=== PATIENT | male | born 1940 | race Caucasian/White ===

== ENCOUNTER 2023-05-19 05:27 | Inpatient (IN) | payer OTHER, SELFPAY ==
[2023-05-19] VITALS (12 sets, daily range): BP systolic 94–161; BP diastolic 54–118; BMI 20.4; BMI 19.9
--- NOTE | 2023-05-19 01:14 | ED.GENMED ---
History of Present Illness
<SAWYER Elizabeth - Last Filed: 05/19/23 18:01>
General
Chief Complaint: Abdominal Pain
Source: patient
Exam Limitations: none
Time Seen by Provider: 05/19/23 01:02
Travel History
Have you had any contact with someone who has COVID-19?: Unable to Answer
Do you have any symptoms of coronavirus? Fever > 100 degrees, chills, cough, shortness of breath, sore throat, loss of taste or smell, muscle aches, or headache?: No
History of Present Illness
History of Present Illness:
This is a 83 year old male that is brought in by ambulance with c/o abd pain. Patient states that he started with abd pain at 9pm tonight. States that he was nauseated and vomited. States that he has a headache with some dizziness. Denies any fever,
chills, chest pain, diarrhea, urinary burning.
Past History
<SAWYER Elizabeth - Last Filed: 05/19/23 18:01>
Past History
ED Past Medical History: HTN, Hypercholesterolemia and Other (Thalassemia, history of alcohol abuse, B12 deficiency, degenerative joint disease, colon polyps, Rectal bleeding, back and neck pain, Cystitis, )
ED Past Surgical History: Orthopedic (Right wrist surgery, Right rotator cuff, Back surgery) and Urological
Social History
Tobacco: Former smoker
Alcohol: Former
Drug: None
Personal:
Living: care home ([facility])
Employment: Retired
Family History
Family History: Other (Noncontributory)
Review of Systems
<SAWYER Elizabeth - Last Filed: 05/19/23 18:01>
Review of Systems
All Other Systems: ROS reviewed and negative except as documented in HPI and ROS
Constitutional: Reports no symptoms; Denies fever or chills
EENT: Reports no symptoms
Respiratory: Reports trouble breathing; Denies cough
Cardiac: Reports no symptoms; Denies chest pain
ABD/GI: Reports abdominal pain, nausea and vomiting; Denies diarrhea
: Reports no symptoms; Denies dysuria, frequency or urgency
Musculoskeletal: Reports no symptoms
Skin: Reports no symptoms
Neurological: Reports dizzy and headache
Psychiatric: Reports no symptoms
Phy Exam
<SAWYER Elizabeth - Last Filed: 05/19/23 18:01>
General Physical Exam
General Presentation: no apparent distress
General age: appears stated age
General Skin: warm and dry
General Habitus: debilitated and elderly
General Mental: alert
General Hydration: dry mucous membranes
ENT Exam
ENT Exam: TM's normal, pharynx normal and neck supple
Eye Exam
Eye Exam: EOMI
Cardiovascular Exam
Cardiovascular Exam: regular rate/rhythm, no edema and normal peripheral pulses
Pulmonary Exam
Pulmonary Exam: lungs clear, no respiratory distress, no rales, chest non tender, no crackles, no rhonchi, no wheezing and no cough
Gastrointestinal Exam
Gastrointestinal Exam: soft, no organomegaly, no pulsatile mass, non distended, tender (Slight tenderness with palpation upper abd) and other (Hypoactive bowel sounds)
Musculoskeletal Exam
Musculoskeletal Exam: full ROM and no edema
Skin Exam
Skin Exam: normal color, warm/dry, no rash and no petechia
Psychiatric Exam
Psychiatric Exam: normal mood/affect
Course
<SAWYER Elizabeth - Last Filed: 05/19/23 18:01>
Orders/Labs/Results
Orders:
Orders
05/19/23 01:13
0.9% Sodium Chloride 1000 ml [Nss] 1,000 ml IV BOLUS
Iohexol [Omnipaque] See Protocol PO NOW STA
Ondansetron Injectable [Zofran] 4 mg IV NOW STA
05/19/23 01:14
CT Abd/pel W Iv And Oral Contr Urgent
Comment:
Reason For Exam: abd pain
05/19/23 01:21
Electrocardiogram (*1) Urgent
Reason for Study: Abdominal Pain
EKG- Treatment ONCE
05/19/23 01:33
Complete Blood Count/With Diff Urgent
Comprehensive Metabolic Panel Urgent
05/19/23 05:11
Admit/Transfer Patient As Directed
Co-Sign Provider:
Level of Care: Inpatient admission
Assign to:: Medical/Surgical
Physician / Group: [email or web address]
Diagnosis: SBO
Reason for Hospitalization: SBO
Expected length of stay greater than two midnights?: Yes
ELOS- Estimated Length of Stay in days: 3
I certify the patient meets the requirements for IP care: Yes
05/19/23 05:12
Code Status As Directed
Resuscitation Status: Full Code
05/19/23 05:54
Basic Metabolic Panel Urgent
05/19/23 Breakfast
NPO
Allow oral meds: No
Allow clear liquids: No
NPO with Ice Chips: Yes
05/19/23 06:18
0.9% Sodium Chloride 1000 ml [Nss] 1,000 ml IV 80 mls/hr
HYDROmorphone [Dilaudid] 0.5 mg IV Q4HPRN PRN
Ondansetron Injectable [Zofran] 4 mg IV Q6HPRN PRN
05/19/23 06:18
SURGICAL CONSULT Routine
Consulting Provider: Theo Santos
Was physician already notified: Yes
Reason for consult: SBO transition point in the lower abdomen with possible intussuseption
Activity As Directed
Activity Level: With Assistance
Intake/ Output As Directed
Frequency: Per unit guidelines
Pneumatic Compression Sleeves As Directed
Type: Knee high
Vital Signs As Directed
Frequency: Per unit guidelines
Weight As Directed
Frequency: Daily
DX Deep Vein Thrombosis Video Routine
05/19/23 07:00
Urinalysis Reflex To Culture Urgent
Date Specimen was Collected: 05/19/23
Time Specimen was Collected: 01:20
05/20/23 06:00
Basic Metabolic Panel IN AM
Complete Blood Count/No Diff IN AM
Abnormal Lab Results
05/19/23
01:33
RBC 4.49 L 10^6/uL
(4.70-6.10)
RDW 14.6 H %
(11.5-14.5)
MPV 10.9 H fL
(7.4-10.4)
Absolute Neuts (auto) 7.8 H 10^3/uL
(1.4-6.5)
Absolute Lymphs (auto) 1.1 L 10^3/uL
(1.2-3.4)
Neutrophils % 81.5 H %
(42.2-75.2)
Lymphocytes % 11.8 L %
(20.5-51.1)
Potassium 5.9 H mmol/L
(3.5-5.1)
BUN 38 H mg/dl
(9-20)
Glucose 154 H mg/dl
(70-99)
05/19/23 01:33
05/19/23 01:33
Hyperkalemia, Dehydration. Glucose nonfasting.
Vital Signs
Initial and Last Documented VS:
Initial Vital Signs
Temp Pulse Resp BP Pulse Ox
97.3 F 94 18 156/101 97
05/19/23 01:01 05/19/23 01:01 05/19/23 01:01 05/19/23 01:01 05/19/23 01:01
Last Documented Vital Signs
Temp Pulse Resp BP Pulse Ox
97.7 F 76 16 124/69 93
05/19/23 15:25 05/19/23 15:25 05/19/23 15:25 05/19/23 15:25 05/19/23 15:25
<Chirag Bernal, DO - Last Filed: 05/19/23 05:03>
Orders/Labs/Results
Orders:
Orders
05/19/23 01:13
0.9% Sodium Chloride 1000 ml [Nss] 1,000 ml IV BOLUS
Iohexol [Omnipaque] See Protocol PO NOW STA
Ondansetron Injectable [Zofran] 4 mg IV NOW STA
05/19/23 01:14
CT Abd/pel W Iv And Oral Contr Urgent
Comment:
Reason For Exam: abd pain
05/19/23 01:21
Electrocardiogram (*1) Urgent
Reason for Study: Abdominal Pain
EKG- Treatment ONCE
05/19/23 01:33
Complete Blood Count/With Diff Urgent
Comprehensive Metabolic Panel Urgent
05/19/23 05:11
Admit/Transfer Patient As Directed
Co-Sign Provider:
Level of Care: Inpatient admission
Assign to:: Medical/Surgical
Physician / Group: [email or web address]
Diagnosis: SBO
Reason for Hospitalization: SBO
Expected length of stay greater than two midnights?: Yes
ELOS- Estimated Length of Stay in days: 3
I certify the patient meets the requirements for IP care: Yes
05/19/23 05:12
Code Status As Directed
Resuscitation Status: Full Code
05/19/23 05:54
Basic Metabolic Panel Urgent
05/19/23 Breakfast
NPO
Allow oral meds: No
Allow clear liquids: No
NPO with Ice Chips: Yes
05/19/23 06:18
0.9% Sodium Chloride 1000 ml [Nss] 1,000 ml IV 80 mls/hr
HYDROmorphone [Dilaudid] 0.5 mg IV Q4HPRN PRN
Ondansetron Injectable [Zofran] 4 mg IV Q6HPRN PRN
05/19/23 06:18
SURGICAL CONSULT Routine
Consulting Provider: Theo Santos
Was physician already notified: Yes
Reason for consult: SBO transition point in the lower abdomen with possible intussuseption
Activity As Directed
Activity Level: With Assistance
Intake/ Output As Directed
Frequency: Per unit guidelines
Pneumatic Compression Sleeves As Directed
Type: Knee high
Vital Signs As Directed
Frequency: Per unit guidelines
Weight As Directed
Frequency: Daily
DX Deep Vein Thrombosis Video Routine
05/19/23 07:00
Urinalysis Reflex To Culture Urgent
Date Specimen was Collected: 05/19/23
Time Specimen was Collected: 01:20
05/20/23 06:00
Basic Metabolic Panel IN AM
Complete Blood Count/No Diff IN AM
Abnormal Lab Results
05/19/23
01:33
RBC 4.49 L 10^6/uL
(4.70-6.10)
RDW 14.6 H %
(11.5-14.5)
MPV 10.9 H fL
(7.4-10.4)
Absolute Neuts (auto) 7.8 H 10^3/uL
(1.4-6.5)
Absolute Lymphs (auto) 1.1 L 10^3/uL
(1.2-3.4)
Neutrophils % 81.5 H %
(42.2-75.2)
Lymphocytes % 11.8 L %
(20.5-51.1)
Potassium 5.9 H mmol/L
(3.5-5.1)
BUN 38 H mg/dl
(9-20)
Glucose 154 H mg/dl
(70-99)
05/19/23 01:33
05/19/23 01:33
Vital Signs
Initial and Last Documented VS:
Initial Vital Signs
Temp Pulse Resp BP Pulse Ox
97.3 F 94 18 156/101 97
05/19/23 01:01 05/19/23 01:01 05/19/23 01:01 05/19/23 01:01 05/19/23 01:01
Last Documented Vital Signs
Temp Pulse Resp BP Pulse Ox
97.7 F 76 16 124/69 93
05/19/23 15:25 05/19/23 15:25 05/19/23 15:25 05/19/23 15:25 05/19/23 15:25
<SAWYER Elizabeth - Last Filed: 05/19/23 18:01>
MDM/Problems Addressed
Differential Diagnosis Includes:
UTI, Viral syndrome, Bowel obstruction
MDM/Problems Addressed:
This is a 83 year old male that comes in by ambulance with c/o abd pain, nausea, vomiting. States that this started at 9pm tonight.
Will get labs, IV fluids, Urine and CT scan.
Told by Nursing staff that patient was straight cathed and there was nothing in his bladder. Blood work shows dehydration. Will give IV fluids and hope that patient can urinate.
Chronic conditions affecting care:
[place]
Acute Exacerbation and/or Progression of Chronic Illness:
NA
<SAWYER Elizabeth - Last Filed: 05/19/23 18:01>
*Radiology
Radiology exam reviewed: radiology read reviewed (CT- Findings consistent with distal small bowl obstruction. Suspected transition point on axial series 201 image 44. No evidence of free intraperitoneal air or pneumatosis interintalis. Trace free
fluid within the pelvis, likely reactive. Cholelithiasis without evidence of acute cholecystitis. Small) and other (CT cont- hiatal hernia. Retention or reflux of oral contrast within the distal esophagus.)
*Pulse Oximetry
Patient hypoxic: no
*EKG
Interpreted by ED Provider?: Yes
Heart Rate: 91
Rate: normal
Rhythm: sinus
[place]: normal axis
Interval: first degree heart block and long QT
QRS Pattern: normal QRS
Ischemia: no ischemia
*Underwater Hunter Trapper Interpretation
Rate: normal
Heart Rate: 92
Rhythm: sinus
*Critical Care Note
Total Time (30-74mins, 75-104mins- exclusive of procedures): Not Applicable
<Chirag Bernal DO - Last Filed: 05/19/23 05:03>
Update Note
Update Note:
05/19/2023 0503 AM: I did consult general surgery. They are aware of the possible intussusception.
ED Attending Note
<SAWYER Elizabeth - Last Filed: 05/19/23 18:01>
-
Portions of this chart may have been created with voice recognition software.� Occasional wrong word or��sound alike� substitutions may have occurred due to the inherent limitations of voice recognition software.
<Chirag Bernal DO - Last Filed: 05/19/23 05:03>
ED Attending Note
Patient seen and examined by attending physician: Yes
I performed the substantive portion of visit, reviewed & personally made and approve the management plan that is documented in note by myself or ROBERT.: Yes
ED Attending Note:
CT abdomen and pelvis with intravenous contrast
IMPRESSION:
Acute small bowel obstruction with transition point in the lower abdomen associated with possible intussusception in this region, series 201, image 57 for example, versus artifact. Consider surgical consult.
No perforation or abscess. Small volume ascites. Small pleural effusions.
Mild renal atrophy without obstructing stone. Cholelithiasis without cholecystitis. Abdominal aorta is of normal caliber.
Discussed admission to the hospital with patient he is in agreement.
Spoke with hospitalist who agrees to admit patient.
Discharge Plan
Departure
Patient Disposition: Admit
Date of Disposition: 05/19/23
Time of Disposition: 05:01
Admit to: Med/Surg
Presentation/result/management discussed w/ accepting MD/DO: Hospitalist
Patient with high blood pressure during this ER visit?: Yes
Condition: Good
Covid-19: Not Applicable
Discharge Problem:
Acute small bowel obstruction
Interventions
Interventions:
*Risk Screen - Suicide Last Done: 05/19/23 01:52
*General Assessment Last Done: 05/19/23 01:52
*Neglect/Abuse Screening Last Done: 05/19/23 01:52
ED- Fall Risk Assessment Last Done: 05/19/23 01:52
*ED COVID-19 Vaccine History Last Done: 05/19/23 01:52
*Nursing Disposition Last Done: 05/19/23 06:27
JG-Znemfs-Dqzoqepogv Assessment Last Done: 05/19/23 01:52
Discharge Date and Time
Discharge Date/Time: 05/19/23 06:28
[2023-05-19] MEDS: NSS 1000 IV ×3 (01:40→18:29)
[2023-05-19 01:42] LABS: % Basophils 0.2 % (0-2); % Eosinophils 0.1 % (0-6); % Immature Granulocytes 0.3 % (0-0.5); % Lymphocytes 11.8 % (20.5-51.1); % Monocytes 6.1 % (1.7-9.3); % Neutrophils 81.5 % (42.2-75.2); Absolute Lymphocytes 1.1 10^3/uL (1.2-3.4); Absolute Monocytes 0.6 10^3/uL (0.1-0.6); Absolute Neutrophils 7.8 10^3/uL (1.4-6.5); Hematocrit 39.4 % (39.0-52.0); Hemoglobin 13.2 g/dL (13.0-18.0); Mean Corp Hgb Conc. 33.5 g/dL (33.0-37.0); Mean Corpuscular Hgb 29.4 pg (27.0-31.0); Mean Corpuscular Volume 87.8 fL (80.0-94.0); Mean Platelet Volume 10.9 fL (7.4-10.4); Nucleated Red Blood Cells % 0 % (-); Platelet Count 158 10^3/uL (130-400); Red Blood Cell Count 4.49 10^6/uL (4.70-6.10); Red Cell Dist. Width 14.6 % (11.5-14.5); White Blood Cell Count 9.6 10^3/uL (4.8-10.8)
[2023-05-19] MEDS: OMNIPAQUE 50 ML PO (01:42)
[2023-05-19] MEDS: ZOFRAN 4 MG IV (01:43)
[2023-05-19 02:08] LABS: ALT (SGPT) 48 U/L (0-50); AST (SGOT) 55 U/L (17-59); Albumin 4.5 g/dl (3.5-5.0); Alkaline Phosphatase 94 U/L (38-126); Blood Urea Nitrogen 38 mg/dl (9-20); Calcium 9.8 mg/dl (8.4-10.2); Carbon Dioxide 28 mmol/L (22-30); Chloride 99 mmol/L (98-107); Estimated Creatinine Clearance 39 ml/min; Glucose 154 mg/dl (70-99); Potassium 5.9 mmol/L (3.5-5.1); Sodium 136 mmol/L (135-145); Total Bilirubin 0.6 mg/dl (0.2-1.3); Total Protein 7.8 g/dl (6.3-8.2); eGFR > 60.00
--- NOTE | 2023-05-19 05:03 | HPS.HSE ---
Family Physician
-
Family Physician: Chai Cervantes
Chief Complaint
-
acute onset of abd pain
History of Present Illness
83M very [place] HX Prx AF, HTN BiB EMS for acute onset abd pain at 9pm tonight.
Associated nausea and vomited.
ROS
headache with some dizziness.
Denies any fever, chills, chest pain, diarrhea, urinary burning.
Medical History
Past Medical History
Past Medical History: Reports Other
Additional Past Medical History:
Paroxysmal atrial fibrillation.
Essential hypertension.
Hyperlipidemia.
Benign prostatic hyperplasia
Adenomatous polyps
Diverticulosis
Hemorrhoids
Thalassemia
B12 deficiency
KAKE�hearing aids
Chronic ambulatory dysfunction uses cane at baseline
Past Surgical History: Reports Other
Additional Past Surgical History:
Rt rotator cuff repair, right wrist repair,' back surgery
Last [place] February 2019�adenomatous polyps, diverticulosis, hemorrhoids
Social History
Tobacco: Former Smoker (Stopped 40 years ago)
Alcohol: None
Drug: None
Personal:
Living: With Family
Family History
Family History: Not pertinent
Allergies / Home Medications
Allergies reflects when Allergies were last updated in [employer].
Home Medications with original date entered in [employer]
Allergy/Medication List:
Allergies
Allergy/AdvReac Type Severity Reaction Status Date / Time
No Known Allergies Allergy Verified 03/10/21 07:28
Home Medications
cyanocobalamin (vitamin B-12) 1,000 mcg tablet 1,000 mcg PO DAILY Supplement 07/12/18
lisinopril 10 mg tablet 10 mg PO DAILY Blood pressure 03/12/19
pravastatin 20 mg tablet 20 mg PO DAILY High cholesterol 03/12/19
alfuzosin 10 mg tablet,extended release 24 hr 10 mg PO HS Urinary issue 04/14/20
solifenacin 5 mg tablet 10 mg PO DAILY Urinary issue 07/02/20
metoprolol succinate 25 mg tablet,extended release 24 hr 25 mg PO DAILY Blood pressure 01/04/21
Review of Systems
-
Constitutional: Reports No Symptoms
EENT: Reports No Symptoms
Respiratory: Reports No Symptoms
Cardiac: Reports No Symptoms
Abdomen/GI: Reports See HPI, Abdominal Pain, Nausea and Vomiting
: Reports No Symptoms
Musculoskeletal: Reports No Symptoms
Skin: Reports No Symptoms
Neurological: Reports No Symptoms
Endocrine: Reports No Symptoms
Hematologic/Lymphatic: Reports No Symptoms
Psych: Reports No Symptoms
Physical Exam
Vital Signs
Vital Signs
Temp Pulse Resp BP Pulse Ox
97.3 F 92 25 157/93 95
05/19/23 01:01 05/19/23 04:45 05/19/23 04:45 05/19/23 04:40 05/19/23 04:45
Physical Exam
General: Other (thin appearin male)
HEENT: NormoCephalic, Moist mucous membranes, PERRLA and Other (very [place] did not bring hearing aids to hospital )
Respiratory: Clear
Cardiac: S1/S2 and Regular Rhythm; No Murmur
Breast: Deferred by me
GI: Soft
Rectal: Deferred by Provider
Genito-urinary: Deferred by me
Musculoskeletal: No Edema
Skin: Warm and Dry
Neuro: AO x 3 and No Motor Deficits
Psych: Calm
Laboratory Results
-
05/19/23 01:33
Laboratory Results
Total Bilirubin 0.6 mg/dl (0.2-1.3) 05/19/23 01:33
AST 55 U/L (17-59) 05/19/23 01:33
ALT 48 U/L (0-50) 05/19/23 01:33
Alkaline Phosphatase 94 U/L (38-126) 05/19/23 01:33
Data Reviewed
-
CT Scan: Report Reviewed by me
Lab Data: Labs Reviewed by me
Old Records: Reviewed
Impression/Plan
-
Data
nl CBC
K 5.9
BUN 38
Cr 1.1 eGFR > [address] AP with IV contrast
- Acute small bowel obstruction with transition point in the lower abdomen associated with possible intussusception in this region, series 201, image 57 for example, versus artifact. Consider surgical consult.
- No perforation or abscess. Small volume ascites. Small pleural effusions.
- Mild renal atrophy without obstructing stone. Cholelithiasis without cholecystitis. Abdominal aorta is of normal caliber.
EKG report
SINUS RHYTHM WITH 1ST DEGREE A-V BLOCK
NONSPECIFIC T WAVE ABNORMALITY
PROLONGED QT
ABNORMAL ECG
WHEN COMPARED WITH ECG OF 11-MAR-2021 05:56,
W[place] INTERVAL HAS INCREASED
NONSPECIFIC T WAVE ABNORMALITY NOW EVIDENT IN INFERIOR LEADS
Last hospitalist admission: 03/10/21 - 03/12/21
DC Dxs: Acute self-limiting nausea, vomiting with colonic ileus, suspected acute gastroenteritis than bowel
obstruction.
ASSESSMENT & PLAN
Acute SBO transition point in the lower abdomen associated with possible intussusception
Acute abdominal pain
HX admission (01/09/2021) rectal bleeding hemorrhoidal vs. diverticular
Afebrile nl WBC
- NPO and IVF
- Analgesia PRN
- GS consulted by ER
Hyperkalemia
nl eGFR
- Held Losartan
- IVF and trend K
In NSR
HX Prx AF - not on AC therapy
- on HELICOPTER REPAIRER Toprol-XL
Primary HTN
- Held Losartan due to hyperkalemia
-cont. HELICOPTER REPAIRER Toprol-XL
HLD
HX BPH
Thalassemia/B12 deficiency HX
Former smoker
EtOH abuse sober x 47 years
Chronic ambulatory dysfunction uses cane at baseline
[place] wear bilateral hearing aids
DVT Px: SCD
Code: Full
IP MS
[2023-05-19 06:27] LABS: Blood Urea Nitrogen 34 mg/dl (9-20); Calcium 9.1 mg/dl (8.4-10.2); Carbon Dioxide 26 mmol/L (22-30); Chloride 99 mmol/L (98-107); Estimated Creatinine Clearance 47 ml/min; Glucose 132 mg/dl (70-99); Potassium 5.1 mmol/L (3.5-5.1); Sodium 133 mmol/L (135-145); eGFR > 60.00
--- NOTE | 2023-05-19 07:30 | PTCARENOTE ---
Received patient from nightshift RN, patient arrived to unit on nights; Bed in lowest position, wheels locked; Call red within reach; Assessment ongoing
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
--- NOTE | 2023-05-19 14:16 | CM ---
CM reviewed chart, per nurse, patient extremely hard of hearing. CM spoke with Rosa, patients nurse at [facility]. Per Rosa, patient is a LTC resident. Patient has a wheelchair and Ladi reported patient can sometimes walk with assistance.
Patient PCP Dr. Cervantes, pharmacy [facility] in [place]. Rosa reports patients friend, Jhoana, is his POA, reports this is not his daughter. CM will continue to follow for discharge planning needs.
Plan; return to [facility] when stable.
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
[2023-05-19] MEDS: LOVENOX 40 MG SC (17:04)
--- NOTE | 2023-05-19 18:29 | PTCARENOTE ---
Attempted to obtain medication list and last known dose for patient from living facility; Per facility they are faxing over medication list
--- NOTE | 2023-05-20 03:12 | PTCARENOTE ---
Addendum entered by Tanvi Sutton RN 05/20/23 07:05:
event happened on 05/19/2023 at 191
Original Note:
1911 Patient had a 24 beat run of VTACH patient was not symptomatic and was asleep at the time. Woke patient to take vitals. No SOB or complaints from patient. Patient is stable. BP 106/54 pulse 75 pulse ox 95% on room air. MUD BOSS Salty Beck was
notified. Mag was added to morning labs. Will continue to monitor. If any symptoms develop with make MUD BOSS aware.
[2023-05-20 03:30] VITALS: BP 111/61
[2023-05-20] MEDS: NSS 1000 IV ×2 (05:23→19:28)
[2023-05-20 06:00] VITALS: BMI 20.4
[2023-05-20 07:04] LABS: Hematocrit 32.7 % (39.0-52.0); Hemoglobin 11.1 g/dL (13.0-18.0); Mean Corp Hgb Conc. 33.9 g/dL (33.0-37.0); Mean Corpuscular Hgb 29.8 pg (27.0-31.0); Mean Corpuscular Volume 87.7 fL (80.0-94.0); Mean Platelet Volume 11.1 fL (7.4-10.4); Platelet Count 122 10^3/uL (130-400); Red Blood Cell Count 3.73 10^6/uL (4.70-6.10); Red Cell Dist. Width 14.7 % (11.5-14.5)
[2023-05-20 07:28] LABS: Blood Urea Nitrogen 25 mg/dl (9-20); Calcium 8.6 mg/dl (8.4-10.2); Carbon Dioxide 25 mmol/L (22-30); Chloride 104 mmol/L (98-107); Estimated Creatinine Clearance 63 ml/min; Glucose 80 mg/dl (70-99); Potassium 4.6 mmol/L (3.5-5.1); Sodium 133 mmol/L (135-145); eGFR > 60.00
[2023-05-20 07:45] VITALS: BP 110/61
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
[2023-05-20 11:25] VITALS: BP 135/71
[2023-05-20] MEDS: LOPRESSOR 5 MG IV ×2 (12:51→18:22)
--- NOTE | 2023-05-20 15:09 | W.PN.GS2 ---
Today's Communication / Plan
-
Clears, ADAT
Assessment / Plan
-
83M with SBO resolving
AFVSS, denies pain and nausea
Labs OK
FU KUB today with non obstructive bowel gas pattern and contrast throughout colon
Plan:
Start Clears
ADAT to LRD
All other care as per primary team
OK for DC when tolerating LRD
Pls call with ?s
Subjective Data
-
Date of Service: May 20, 2023
AFVSS, no complaints, denies nausea, denies pain, unsure about flatus
Objective Data
-
Intake and Output
05/19/23 05/20/23 05/21/23
06:59 06:59 06:59
Intake Total 1919
Output Total 550 / 550
Balance 1370 / 1370
Intake:
IV fluids (Total) 1919
Output:
Urine, Voided 550 / 550
Other:
Number of approximated MODERATE 1
amounts of urine
Number of approximated LARGE 1
amounts of urine
Vital Signs
Temp Pulse Resp BP Pulse Ox
97.8 F 71 16 135/75 97
05/20/23 11:25 05/20/23 12:51 05/20/23 11:25 05/20/23 12:51 05/20/23 11:25
Lab Results
05/20/23 06:30
05/20/23 06:30
Calcium 8.6 mg/dl (8.4-10.2) 05/20/23 06:30
Magnesium 2.0 mg/dl (1.6-2.3) 05/20/23 06:30
Total Bilirubin 0.6 mg/dl (0.2-1.3) 05/19/23 01:33
AST 55 U/L (17-59) 05/19/23 01:33
ALT 48 U/L (0-50) 05/19/23 01:33
Alkaline Phosphatase 94 U/L (38-126) 05/19/23 01:33
Total Protein 7.8 g/dl (6.3-8.2) 05/19/23 01:33
Albumin 4.5 g/dl (3.5-5.0) 05/19/23 01:33
Physical Exam
-
Gen: NAD
Abd: soft, nt, nd
[2023-05-20 15:15] VITALS: BP 124/61
--- NOTE | 2023-05-20 18:09 | W.PN.CD ---
Today's Communication / Plan
-
Consult dictated:
I would suggest continuation of beta nathan, IV while NPO and then resumption of PO BB when taking PO well
Reasonable to check echo on Monday and EF poor we can consider more evaluation depending on patient wishes
Impression / Plan
-
NSVT (less than 12 seconds)
Normal LVEF in Feb 2021
Small bowl obstruction
Hard of hearing
PAF, no longer on anticoagulation
HTN
BPH
Subjective:
Offers no complaints
Physical Exam
Vital Signs/Labs
Vital Signs
Temp Pulse Resp BP Pulse Ox
98.6 F 65 14 124/61 96
05/20/23 15:15 05/20/23 15:15 05/20/23 15:15 05/20/23 15:15 05/20/23 15:15
05/19/23 05/20/23 05/21/23
06:59 06:59 06:59
Actual Weight 54.25 kg 55.52 kg
05/20/23 06:30
05/20/23 06:30
Magnesium 2.0 mg/dl (1.6-2.3) 05/20/23 06:30
Data Reviewed
-
Date of Service: May 20, 2023
[2023-05-20] MEDS: LOVENOX 40 MG SC (18:21)
[2023-05-20 19:00] VITALS: BP 118/64
[2023-05-20 23:00] VITALS: BP 112/65
[2023-05-21] MEDS: LOPRESSOR IV (00:01)
[2023-05-21 03:33] VITALS: BP 111/66
[2023-05-21] MEDS: LOPRESSOR 5 MG IV ×3 (05:55→17:23)
[2023-05-21 06:00] VITALS: BMI 20.7
[2023-05-21 07:21] LABS: Hematocrit 35.8 % (39.0-52.0); Hemoglobin 11.5 g/dL (13.0-18.0); Mean Corp Hgb Conc. 32.1 g/dL (33.0-37.0); Mean Corpuscular Volume 90.2 fL (80.0-94.0); Mean Platelet Volume 11.1 fL (7.4-10.4); Platelet Count 126 10^3/uL (130-400); Red Blood Cell Count 3.97 10^6/uL (4.70-6.10); Red Cell Dist. Width 14.5 % (11.5-14.5); White Blood Cell Count 5.2 10^3/uL (4.8-10.8)
[2023-05-21 07:36] LABS: Blood Urea Nitrogen 20 mg/dl (9-20); Calcium 8.4 mg/dl (8.4-10.2); Carbon Dioxide 23 mmol/L (22-30); Chloride 108 mmol/L (98-107); Estimated Creatinine Clearance 64 ml/min; Glucose 83 mg/dl (70-99); Magnesium 1.9 mg/dl (1.6-2.3); Phosphorus 3.7 mg/dl (2.5-4.5); Potassium 4.2 mmol/L (3.5-5.1); Sodium 134 mmol/L (135-145); eGFR > 60.00
[2023-05-21 07:39] VITALS: BP 136/87
[2023-05-21] MEDS: NSS 1000 IV (08:22)
--- NOTE | 2023-05-21 09:45 | W.PN.CD ---
Today's Communication / Plan
-
Tele
BB
Echo tomorrow
Impression / Plan
-
NSVT
- less than 12 seconds two days agoe
- In last 18 hrs just a 3-4 run of NSCT
- Continue BB
- Check echo tomorrow
- If LVEF good we will not pursue further evaluation, if EF low we can consider more eval/treatment depending on patient wishes
- Normal LVEF in Feb 2021
Small bowl obstruction
Hard of hearing
PAF, no longer on anticoagulation
HTN
BPH
Subjective:
Offers no complaints. Taking oral food. Abdominal pain improved
Physical Exam
Vital Signs/Labs
Vital Signs
Temp Pulse Resp BP Pulse Ox
97.8 F 63 14 136/87 95
05/21/23 07:39 05/21/23 07:39 05/21/23 07:39 05/21/23 07:39 05/21/23 07:39
05/20/23 05/21/23 05/22/23
06:59 06:59 06:59
Actual Weight 55.52 kg 56.416 kg
05/21/23 06:34
05/21/23 06:34
Magnesium 1.9 mg/dl (1.6-2.3) 05/21/23 06:34
Physical Exam
Constitutional: No acute distress and Other (thin)
EENT: Anicteric
Cardiovascular: Rhythm & rate is regular and JVD pressure is normal
Respiratory: Respiratory effort normal and Lungs clear to auscul.
GI: Soft and Distention absent
Neuro/Psych: Alert
Data Reviewed
-
Date of Service: May 21, 2023
[2023-05-21 12:14] VITALS: BP 106/58
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
[2023-05-21 16:34] VITALS: BP 117/70
[2023-05-21] MEDS: VITAMIN B-12 1000 MCG PO (17:23)
[2023-05-21] MEDS: LOVENOX 40 MG SC (17:23)
[2023-05-21 19:55] VITALS: BP 128/64
[2023-05-21] MEDS: FLOMAX 0.400000000000000022 MG PO (21:53)
[2023-05-21 23:40] VITALS: BP 112/68
[2023-05-22] MEDS: LOPRESSOR 5 MG IV (00:30)
[2023-05-22 03:43] VITALS: BP 113/61
[2023-05-22 05:12] VITALS: BMI 20.5
[2023-05-22 06:40] LABS: Hematocrit 32.2 % (39.0-52.0); Hemoglobin 10.6 g/dL (13.0-18.0); Mean Corp Hgb Conc. 32.9 g/dL (33.0-37.0); Mean Corpuscular Hgb 29.4 pg (27.0-31.0); Mean Corpuscular Volume 89.2 fL (80.0-94.0); Mean Platelet Volume 11.6 fL (7.4-10.4); Platelet Count 113 10^3/uL (130-400); Red Blood Cell Count 3.61 10^6/uL (4.70-6.10); Red Cell Dist. Width 14.5 % (11.5-14.5); White Blood Cell Count 4.7 10^3/uL (4.8-10.8)
[2023-05-22 07:08] LABS: Blood Urea Nitrogen 19 mg/dl (9-20); Calcium 8.1 mg/dl (8.4-10.2); Carbon Dioxide 25 mmol/L (22-30); Chloride 106 mmol/L (98-107); Estimated Creatinine Clearance 63 ml/min; Glucose 80 mg/dl (70-99); Magnesium 1.9 mg/dl (1.6-2.3); Phosphorus 3.4 mg/dl (2.5-4.5); Potassium 4.2 mmol/L (3.5-5.1); Sodium 133 mmol/L (135-145); eGFR > 60.00
[2023-05-22 07:53] VITALS: BP 117/70
--- NOTE | 2023-05-22 08:52 | W.PN.CD ---
Today's Communication / Plan
-
- Check echo 05/22/23
- As per EP ( Dr Corrigan- see note)If LVEF good we will not pursue further evaluation, if EF low we can consider more eval/treatment depending on patient wishes
Impression / Plan
-
NSVT
- less than 12 seconds ealier this admit
- In last 24 hrs just a 3-4 run of NSVT
- Continue BB
- Check echo 05/22/23
- As per EP ( Dr Corrigan- see note)If LVEF good we will not pursue further evaluation, if EF low we can consider more eval/treatment depending on patient wishes
- Normal LVEF in Feb 2021
Small bowl obstruction
Hard of hearing
PAF, no longer on anticoagulation
HTN
BPH
Subjective:
Offers no complaints. Taking oral food. Abdominal pain improved
Physical Exam
Vital Signs/Labs
Vital Signs
Temp Pulse Resp BP Pulse Ox
98.0 F 62 16 117/70 96
05/22/23 07:53 05/22/23 07:53 05/22/23 07:53 05/22/23 07:53 05/22/23 07:53
05/21/23 05/22/23 05/23/23
06:59 06:59 06:59
Actual Weight 56.416 kg 55.934 kg
05/22/23 04:56
05/22/23 04:56
Magnesium 1.9 mg/dl (1.6-2.3) 05/22/23 04:56
Physical Exam
Constitutional: No acute distress and Other
EENT: Other (very hard of hearing. I wrote down info to communicate)
Cardiovascular: Rhythm & rate is regular
Respiratory: Wheeze Absent and Rhonchi Absent
Neuro/Psych: Alert
Data Reviewed
-
Date of Service: May 22, 2023
[2023-05-22] MEDS: VITAMIN B-12 1000 MCG PO (08:54)
[2023-05-22] MEDS: VESICARE 10 MG PO (08:54)
[2023-05-22] MEDS: TOPROL XL 25 MG PO (08:54)
[2023-05-22] MEDS: PRAVACHOL 20 MG PO (08:54)
[2023-05-22 09:29] VITALS: BP 138/72; PULSE 67; O2SAT 96
[2023-05-22 09:33] VITALS: BP 138/72; PULSE 64; O2SAT 96
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
--- NOTE | 2023-05-22 13:43 | W.DS.TRANS ---
DC Summary - [employer]
-
Discharge Instructions:
Discharge Diagnosis/Procedures Partial small bowel obstruction likely secondary
to adhesions
Nonsustained ventricular tachycardia that on
May 18
Hyperkalemia resolved
Diet Low Residue
Activity As tolerated
Driving Restrictions No driving
Instructions:
Stand-Alone Forms:
Changes to Home Medications: No
Discharge Medications:
DC Medications w/original date entered in [employer]
cyanocobalamin (vitamin B-12) 1,000 mcg tablet 1,000 mcg PO DAILY Supplement 07/12/18
pravastatin 20 mg tablet 20 mg PO DAILY High cholesterol 03/12/19
alfuzosin 10 mg tablet,extended release 24 hr 10 mg PO HS Urinary issue 04/14/20
solifenacin 5 mg tablet 10 mg PO DAILY Urinary issue 07/02/20
metoprolol succinate 25 mg tablet,extended release 24 hr 25 mg PO DAILY Blood pressure 01/04/21
Home Medication Changes
Hold prior dosing of lisinopril
Pending Results: No
Total time spent discharging patient (in min): 56
--- NOTE | 2023-05-22 13:45 | W.DCSUMMARY ---
Discharge Summary
Discharge Data
Date of Admission: 05/19/23
Date of Discharge: 05/22/23
-
Pending Results: No
Hospital Course
This is an 82-year-old male with a prior medical history that includes paroxysmal atrial fibrillation hypertension brought in by EMS personnel with acute onset of abdominal pain with associated nausea and vomiting is found to have radiologic
criteria for possible evolving small bowel obstruction he was admitted. He was kept n.p.o./CT imaging showed a acute small bowel obstruction with transition point in the lower abdomen associated with possible intussusception in the region and
consultation was placed with the surgical service there is no evidence of any perforation or abscess there is small volume ascites noted and small pleural effusions noted incidentally. Of note the patient had had a hospitalization in 2021 that
involved colonic ileus suspected from acute gastric gastroenteritis above a mechanical bowel obstruction at that time. Patient was also noted to be significantly hyperkalemic and his losartan dosing ARB was held and IV fluids were ordered and
trending of his potassium was undertaken.
He presented in sinus rhythm in spite of prior history of paroxysmal atrial fibrillation he is not on anticoagulant therapy he was continued on metoprolol XL
Surgical consultation recommended supportive management with NG tube if vomiting recurred and felt nonoperative intervention at this point would be prudent. He did respond to supportive management with IV fluids and follow-up KUB showed a
nonobstructive bowel gas pattern with contrast noted throughout the colon recommendation was thusly continued IV hydration and advancing from clears to a low residue diet which was tolerated and felt okay to be discharged as tolerated low residue
diet is at this juncture about 2 days prior to his discharge the patient was noted to have a nonsustained episode of ventricular tachycardia and he was seen by the cardiology service suggesting continuation of beta-blockade IV while n.p.o. then
resumption of p.o. beta-blockade when taking p.o. well. Their recommendation was to obtain a 2D echocardiogram to assess ejection fraction and if altered from prior consideration for further intervention to be entertained however 2D echocardiogram
only showed mild asymmetric septal hypertrophy with normal EF and no evidence of any limb ventricular outflow tract obstruction mild to moderate mitral regurg with a small to moderate pericardial effusion without significant change from February 2021
noted. There was a stage II diastolic dysfunction.
At this point in time the patient is cleared for return to [facility] will continue to hold his lisinopril in the setting of his hyperkalemia presentation should BP become an issue going forward resumption of it would require close observation
and vigilance of his chemistries his present BP not requiring at this point.
Discharge Plan
-
Patient Disposition: Assisted/SNF
Discharge Diagnosis/Procedures: Partial small bowel obstruction likely secondary to adhesions
Nonsustained ventricular tachycardia that on May 18
Hyperkalemia resolved
Diet: Low Residue
Activity: As tolerated
Driving Restrictions: No driving
Referrals:
Chai Cervantes I., DO [Family Provider] -
Additional Discharge Medication Instructions: Held prior dosing of lisinopril if BP becomes an issue can restart but need to monitor potassium as presented with hyperkalemia
Prescriptions:
Continued
cyanocobalamin (vitamin B-12) 1,000 MCG tablet
1,000 mcg PO DAILY
pravastatin 20 MG tablet
20 mg PO DAILY
alfuzosin 10 MG tablet extended release 24 hr
10 mg PO HS
solifenacin 5 MG tablet
10 mg PO DAILY
metoprolol succinate 25 MG tablet extended release 24 hr
25 mg PO DAILY
Discontinued
lisinopril 10 MG tablet
10 mg PO DAILY
Discharge Orders:
Discharge Patient (As Directed); Ordered 05/22/23
Ordered By: Bonifacio Ramirez
Discharge Date and Time
Print Language: MAORI
--- NOTE | 2023-05-22 15:28 | CM ---
Addendum entered by Rosalina Merchant 05/22/23 16:00:
CM reviewed IMM with patient, declined to sign until after his nap, VM left for patient , Nursing aware awaiting for wheelchair van time.
Original Note:
Patient is from [facility] and will need transportation back to SNF. CM left Message for patient Chanelle that patient returning to SNF. CM called to [facility] and per admissions please call report to [phone]. fax clinical and
transition of care to [phone]. CM will complete transfer forms to SNF. CM will attempt to complete IMM with patient. CM will continue to follow for discharge planning needs.
PLan; return to SNF.
[2023-05-22 15:30] VITALS: BP 114/61
[2023-05-22] MEDS: LOVENOX SC (17:41)
[2023-05-22 19:39] VITALS: BP 120/64
--- NOTE | 2023-05-22 19:53 | PTCARENOTE ---
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
such but confirmed okay to be picked up via stretcher; VSS taken and documented by PCT prior to discharge, patient discharged with his belongings (including cell phone) and copies of chart; electronic discharge along with telephone report to Babita
at [facility] completed by paola Florence.
== END 2023-05-22 19:49 | DRG 389 ==
LOC: 2 SOUTH 05:27
PROVIDERS: Clinical Nurse Specialist Family Health; Hospitalist; ADMITTING PHYSICIAN Internal Medicine; ATTENDING PHYSICIAN Internal Medicine; CONSULT PHYSICIAN Internal Medicine Cardiovascular Disease; EMERGENCY PHYSICIAN Student in an Organized Health Care Education/Training Program; FAMILY PHYSICIAN Internal Medicine; OTHER PHYSICIAN Surgery
DX: K56.51 Intestinal adhesions [bands], with partial obstruction (principal); I47.20 Ventricular tachycardia, unspecified; R64 Cachexia; Z87.891 Personal history of nicotine dependence; I10 Essential (primary) hypertension; E87.5 Hyperkalemia; D56.9 Thalassemia, unspecified; R26.2 Difficulty in walking, not elsewhere classified; E53.8 Deficiency of other specified B group vitamins; E78.00 Pure hypercholesterolemia, unspecified; Z68.20 Body mass index [BMI] 20.0-20.9, adult
CPT/HCPCS: 51798; 74018; 74177; 80048; 80053; 83735; 84100; 85025; 85027; 87070; 93005; 93306; 96361; 96374; 97163; 97166; 97530; 99285; Q9967

== ENCOUNTER 2023-09-29 14:14 | Emergency (ER) | payer OTHER, SELFPAY ==
[2023-09-29] VITALS (9 sets, daily range): BP systolic 97–124; BP diastolic 59–72; BMI 19.2
[2023-09-29 14:39] LABS: % Basophils 0.3 % (0-2); % Eosinophils 0.7 % (0-6); % Immature Granulocytes 0.1 % (0-0.5); % Lymphocytes 27.5 % (20.5-51.1); % Monocytes 8.8 % (1.7-9.3); % Neutrophils 62.6 % (42.2-75.2); Absolute Eosinophils 0.1 10^3/uL (0-0.7); Absolute Lymphocytes 1.9 10^3/uL (1.2-3.4); Absolute Monocytes 0.6 10^3/uL (0.1-0.6); Absolute Neutrophils 4.4 10^3/uL (1.4-6.5); Hematocrit 35.1 % (39.0-52.0); Hemoglobin 11.7 g/dL (13.0-18.0); Mean Corp Hgb Conc. 33.3 g/dL (33.0-37.0); Mean Corpuscular Hgb 28.5 pg (27.0-31.0); Mean Corpuscular Volume 85.6 fL (80.0-94.0); Mean Platelet Volume 11.1 fL (7.4-10.4); Nucleated Red Blood Cells % 0 % (-); Platelet Count 146 10^3/uL (130-400); Red Cell Dist. Width 14.8 % (11.5-14.5); White Blood Cell Count 7.1 10^3/uL (4.8-10.8)
[2023-09-29 15:04] LABS: ALT (SGPT) 41 U/L (0-50); AST (SGOT) 41 U/L (17-59); Albumin 3.6 g/dl (3.5-5.0); Alkaline Phosphatase 86 U/L (38-126); Blood Urea Nitrogen 25 mg/dl (9-20); Calcium 8.8 mg/dl (8.4-10.2); Carbon Dioxide 28 mmol/L (22-30); Chloride 100 mmol/L (98-107); Glucose 107 mg/dl (70-99); Lipase 19 U/L (23-300); Potassium 4.9 mmol/L (3.5-5.1); Sodium 133 mmol/L (135-145); Total Bilirubin 0.7 mg/dl (0.2-1.3); Total Protein 6.3 g/dl (6.3-8.2); eGFR > 60.00
[2023-09-29] MEDS: OMNIPAQUE 50 ML PO (16:25)
[2023-09-29] MEDS: ZOFRAN 4 MG IV (16:36)
--- NOTE | 2023-09-29 17:00 | ED.GENMED ---
History of Present Illness
<Tamie Miguel PA-C - Last Filed: 10/02/23 10:05>
General
Chief Complaint: Abdominal Pain
Source: patient and ambulance crew
Exam Limitations: none
Time Seen by Provider: 09/29/23 15:18
Nursing documentation reviewed up to this point in time: agreed with
History of Present Illness
History of Present Illness:
pt is a 83 y/o M with a history of hypertension, high cholesterol, previous alcohol abuse, paroxysmal A-fib not anticoagulated, history of ileus and SBO presents for lower abdominal pain. He says he is had it for quite some time, he tells people
different things like he told me for the last 2 or 3 days and he told intake noticed that he was having pain for about a week. Patient says the pain comes and goes. He has also had several episodes of nausea and vomiting today which is what
prompted the visit. He has not had any back pain or pain radiating down into his leg. He has not had any fevers or chills. He took denies that there is any GI bleeding. He did have a previous GI bleed with bright red blood per rectum in 2020.
He has also had ileus or partial small bowel obstruction previously as well.
pt does not appear to be in any distress
Past History
<Tamie Miguel PA-C - Last Filed: 10/02/23 10:05>
Past History
ED Past Medical History: HTN, Hypercholesterolemia and Other (Thalassemia, history of alcohol abuse, B12 deficiency, degenerative joint disease, colon polyps, Rectal bleeding, back and neck pain, Cystitis, )
ED Past Surgical History: Orthopedic (Right wrist surgery, Right rotator cuff, Back surgery) and Urological
Social History
Tobacco: Former smoker
Alcohol: Former
Drug: None
Personal:
Living: half-way ([facility])
Employment: Retired
Family History
Family History: Other (Noncontributory)
Review of Systems
<Tamie Miguel PA-C - Last Filed: 10/02/23 10:05>
Review of Systems
Allergies reviewed?: Yes
All Other Systems: Not applicable
Phy Exam
<Tamie Miguel PA-C - Last Filed: 10/02/23 10:05>
Physical Exam
Physical Exam:
GENERAL: Alert , in no apparent distress hard of hearing, patient appears comfortable
ENT: o/p clr, mmm.
CARDIAC: Regular rate and rhythm .
LUNGS: Clear breath sounds bilaterally, no acute respiratory distress, no wheezes/rales/rhonchi
ABDOMEN: Soft, minimal right lower quadrant tenderness,/right inguinal tenderness, no bulging or obvious hernia, soft abdomen, normal bowel sounds,, no r/g, no cvat,
No obvious hernias testicular exam
Midline vertical incision well-healed
NEUROLOGICAL: Alert and oriented, no focal neuro deficits
SKIN: Warm and dry, skin intact.
PSYCH: Normal and appropriate interaction.
Course
<Tamie Miguel PA-C - Last Filed: 10/02/23 10:05>
Orders/Labs/Results
Orders:
Orders
09/29/23 14:34
Complete Blood Count/With Diff Urgent
Comprehensive Metabolic Panel Urgent
Lipase Urgent
09/29/23 15:49
CT Abd/pel W Iv And Oral Contr Urgent
Comment:
Reason For Exam: rlq pain, rpevious surgery ?, h/o SBO, vomiting
Iohexol [Omnipaque] See Protocol PO NOW STA
Ondansetron Injectable [Zofran] 4 mg IV NOW STA
09/29/23 20:23
Fosfomycin [Monurol] 3 gm PO ONCE ONE
09/29/23 20:31
Urinalysis Urgent
Date Specimen was Collected: 09/29/23
Time Specimen was Collected: 20:30
Urine Microscopic Urgent
Date Specimen was Collected: 09/29/23
Time Specimen was Collected: 20:30
Urine Culture Urgent
OREN Source: Urine
Specimen Description:
Obtained by: Straight Cath
Date Specimen was Collected: 09/29/23
Time Specimen was Collected: 20:27
Abnormal Lab Results
09/29/23 09/29/23
14:34 20:31
RBC 4.10 L 10^6/uL
(4.70-6.10)
Hgb 11.7 L g/dL
(13.0-18.0)
Hct 35.1 L %
(39.0-52.0)
RDW 14.8 H %
(11.5-14.5)
MPV 11.1 H fL
(7.4-10.4)
Sodium 133 L mmol/L
(135-145)
BUN 25 H mg/dl
(9-20)
Glucose 107 H mg/dl
(70-99)
Lipase 19 L U/L
(23-300)
Urine Occult Blood 1+ A
(Negative)
Urine RBC 11-15 A /HPF
(0-2)
09/29/23 14:34
09/29/23 14:34
Vital Signs
Initial and Last Documented VS:
Initial Vital Signs
Temp Pulse Resp BP Pulse Ox
98.2 F 70 16 105/59 98
09/29/23 14:22 09/29/23 14:22 09/29/23 14:22 09/29/23 14:22 09/29/23 14:22
Last Documented Vital Signs
Temp Pulse Resp BP Pulse Ox
98 F 59 16 111/63 95
09/29/23 19:17 09/29/23 21:00 09/29/23 21:00 09/29/23 21:00 09/29/23 19:17
<Torrey Bo PA-C - Last Filed: 09/29/23 20:46>
Orders/Labs/Results
Orders:
Orders
09/29/23 14:34
Complete Blood Count/With Diff Urgent
Comprehensive Metabolic Panel Urgent
Lipase Urgent
09/29/23 15:49
CT Abd/pel W Iv And Oral Contr Urgent
Comment:
Reason For Exam: rlq pain, rpevious surgery ?, h/o SBO, vomiting
Iohexol [Omnipaque] See Protocol PO NOW STA
Ondansetron Injectable [Zofran] 4 mg IV NOW STA
09/29/23 20:23
Fosfomycin [Monurol] 3 gm PO ONCE ONE
09/29/23 20:31
Urinalysis Urgent
Date Specimen was Collected: 09/29/23
Time Specimen was Collected: 20:30
Urine Microscopic Urgent
Date Specimen was Collected: 09/29/23
Time Specimen was Collected: 20:30
Urine Culture Urgent
OREN Source: Urine
Specimen Description:
Obtained by: Straight Cath
Date Specimen was Collected: 09/29/23
Time Specimen was Collected: 20:27
Abnormal Lab Results
09/29/23 09/29/23
14:34 20:31
RBC 4.10 L 10^6/uL
(4.70-6.10)
Hgb 11.7 L g/dL
(13.0-18.0)
Hct 35.1 L %
(39.0-52.0)
RDW 14.8 H %
(11.5-14.5)
MPV 11.1 H fL
(7.4-10.4)
Sodium 133 L mmol/L
(135-145)
BUN 25 H mg/dl
(9-20)
Glucose 107 H mg/dl
(70-99)
Lipase 19 L U/L
(23-300)
Urine Occult Blood 1+ A
(Negative)
Urine RBC 11-15 A /HPF
(0-2)
09/29/23 14:34
09/29/23 14:34
Vital Signs
Initial and Last Documented VS:
Initial Vital Signs
Temp Pulse Resp BP Pulse Ox
98.2 F 70 16 105/59 98
09/29/23 14:22 09/29/23 14:22 09/29/23 14:22 09/29/23 14:22 09/29/23 14:22
Last Documented Vital Signs
Temp Pulse Resp BP Pulse Ox
98 F 59 16 111/63 95
09/29/23 19:17 09/29/23 21:00 09/29/23 21:00 09/29/23 21:00 09/29/23 19:17
<Tamie Miguel PA-C - Last Filed: 10/02/23 10:05>
MDM/Problems Addressed
Differential Diagnosis Includes:
Bowel obstruction, appendicitis, ileus, hernia
MDM/Problems Addressed:
83-year-old male hard of hearing history of hypertension and high cholesterol from [facility] for what sounds like a couple of days of lower abdominal pain on the right associated with nausea and vomiting. Patient does have a previous abdominal
incision site that is well-healed and he does not recall what that surgery was for. I have looked back at previous images and the reports and did not find any documentation of an appendix so he it is possible he had an appendectomy. On exam he had
mild right lower quadrant tenderness. Patient has had a ileus previously and a small bowel obstruction and was vomiting then. Given his symptoms with pain and vomiting I will p.o. prep for a CT scan. His screening labs so far feel like mild BUN
elevation, hemoglobin is on his baseline. Doubt GI bleed.
Patient appears pain controlled currently. Will sign out case to [facility] KENDRICK pending CT scan
<Torrey Bo PA-C - Last Filed: 09/29/23 20:46>
*Critical Care Note
Total Time (30-74mins, 75-104mins- exclusive of procedures): Not Applicable
<Torrey Bo PA-C - Last Filed: 09/29/23 20:46>
Update Note
Update Note:
1735: Assumed care of pt from Megan Miguel PA-C at shift change 1800. Awaiting CT due to lower abd pain; pt with recent admission in May for partial SBO. Pt comfortable at this time.
1942: CT reviewed, no obvious findings to suggest source of pain.Could be constipation vs UTI given bladder wall thickening. Pt has no further tenderness on exam. Straight cath for urine unsuccessful by RN as pt's foreskin cannot be retracted; cath
performed by myself for small volume of urine. Will treat empirically for UTI w/ single dose of fosfomycin, will follow culture
ED Attending Note
<Tamie Miguel PA-C - Last Filed: 10/02/23 10:05>
-
Portions of this chart may have been created with voice recognition software.� Occasional wrong word or��sound alike� substitutions may have occurred due to the inherent limitations of voice recognition software.
Discharge Plan
Departure
Patient Disposition: Home (Routine Discharge)
Date of Disposition: 09/29/23
Time of Disposition: 20:45
Patient with high blood pressure during this ER visit?: No
Discharge Problem:
Abdominal pain, lower
Instructions: Abdominal Pain
Prescriptions:
No Action
cyanocobalamin (vitamin B-12) 1,000 MCG tablet
1,000 mcg PO DAILY
pravastatin 20 MG tablet
20 mg PO DAILY
alfuzosin 10 MG tablet extended release 24 hr
10 mg PO HS
solifenacin 5 MG tablet
10 mg PO DAILY
metoprolol succinate 25 MG tablet extended release 24 hr
25 mg PO DAILY
Referrals:
Chai Cervantes I., DO [Family Provider] -
Activity Restrictions/Additional Instructions:
CT scan showed mild bladder wall thickening. Anastasis was treated with a dose of fosfomycin, which should be adequate for a UTI. We will contact you if the culture result warrants a change in therapy
Interventions
Interventions:
*Risk Screen - Suicide Last Done: 09/29/23 16:07
*General Assessment Last Done: 09/29/23 16:07
*Neglect/Abuse Screening Last Done: 09/29/23 16:07
ED- Fall Risk Assessment Last Done: 09/29/23 16:08
*ED COVID-19 Vaccine History Last Done: 09/29/23 16:08
*Nursing Disposition Last Done: 09/29/23 21:53
QC-Gfhake-Ykebqllxly Assessment Last Done: 09/29/23 16:24
Discharge Date and Time
Discharge Date/Time: 09/29/23 21:53
Print Language: UPPER SORBIAN
--- NOTE | 2023-09-29 17:09 | EDRN ---
Pt is drinking contrast w/ this RNs assist.
--- NOTE | 2023-09-29 18:30 | EDRN ---
Pt finished oral contrast at this time.
--- NOTE | 2023-09-29 19:04 | EDRN ---
Dr. Cooper responded to my text as below (cut and pasted from TT):
I think we can leave as is. His MAP is 25% or so reduced so we�re basically at goal for now. Just added the PRNs in case he spikes again.
6:54 PM
30 days left
He probably could use a diuretic but I�m waiting for morning to start bc I don�t want to drop BP too much
[2023-09-29 20:37] LABS: Urine Albumin Negative (Neg - Trace); Urine Bilirubin Negative (Negative); Urine Character Clear (Clear); Urine Color Straw; Urine Glucose Negative (Negative); Urine Ketone Negative (Negative); Urine Leukocyte Negative (Negative); Urine Nitrite Negative (Negative); Urine Occult Blood 1+ (Negative); Urine Specific Gravity 1.005 (<1.030); Urine Urobilinogen Negative (Neg - 1+)
[2023-09-29] MEDS: MONUROL 3 GM PO (20:39)
[2023-09-29 20:57] LABS: Urine White Cell 0-2 /HPF (0-5)
== END 2023-09-29 21:53 | disposition home or self-care (01) ==
LOC: EMR 14:14
PROVIDERS: Emergency Medicine; Physician Assistant; EMERGENCY PHYSICIAN Emergency Medicine; FAMILY PHYSICIAN Internal Medicine
DX: R10.9 Unspecified abdominal pain (principal); I10 Essential (primary) hypertension; E78.00 Pure hypercholesterolemia, unspecified; I48.0 Paroxysmal atrial fibrillation; F10.10 Alcohol abuse, uncomplicated; D56.9 Thalassemia, unspecified; E53.8 Deficiency of other specified B group vitamins; M19.90 Unspecified osteoarthritis, unspecified site; Z87.19 Personal history of other diseases of the digestive system; Z87.891 Personal history of nicotine dependence
CPT/HCPCS: 99284; 96374; 74177; 80053; 81003; 81015; 83690; 85025; 87086; 87147; 87186; Q9967